=== PATIENT | male | born 1990 | race Caucasian/White ===

== ENCOUNTER 2019-01-12 12:53 | Emergency (ER) | payer OTHER ==
[~2019-01-12] VITALS: Ht 182.9 cm; Wt 73.5 kg
[~2019-01-12 12:53] MED LIST: ALBU90OI INH; AMOX500 PO; CEPH500 PO; CODGUAEL PO; DOXY100 PO; ERYT333ERA PO; HYDGUAL120 PO; SULF10OPSA OU; SULTRIDS PO
[2019-01-12] MEDS ORDERED: Bactrim Ds Tab1 EACH PO (14:01)
== END 2019-01-12 14:24 | disposition home or self-care (01) ==
LOC: ER 12:53
DX: S62.202A Unspecified fracture of first metacarpal bone, left hand, initial encounter for closed fracture (principal); F17.210 Nicotine dependence, cigarettes, uncomplicated; X58.XXXA Exposure to other specified factors, initial encounter
CPT/HCPCS: 29125; 73130; 99283-25

== ENCOUNTER 2019-02-12 02:41 | Emergency (ER) | payer OTHER ==
[~2019-02-12] VITALS: Ht 182.9 cm; Wt 81.7 kg
[~2019-02-12 02:41] MED LIST changes: +Bactrim Ds Tab1 EACH PO
[2019-02-12] MEDS ORDERED: ERYT1OIN RIGHTEYE (03:56)
[2019-02-12] MEDS ORDERED: IMPOYZ60 GM TOP (03:56)
== END 2019-02-12 04:15 | disposition home or self-care (01) ==
LOC: ER 02:41
DX: H10.9 Unspecified conjunctivitis (principal); L25.5 Unspecified contact dermatitis due to plants, except food; F17.200 Nicotine dependence, unspecified, uncomplicated

== ENCOUNTER 2019-02-17 19:05 | Emergency (ER) | payer OTHER ==
[~2019-02-17] VITALS: Ht 182.9 cm; Wt 86.2 kg
[~2019-02-17 19:05] MED LIST changes: +ERYT1OIN RIGHTEYE; +IMPOYZ60 GM TOP
[2019-02-17] MEDS ORDERED: CEPH500 PO (21:07)
[2019-02-17] MEDS ORDERED: Bactrim Ds Tab1 EACH PO (21:12)
== END 2019-02-17 21:19 | disposition home or self-care (01) ==
LOC: ER 19:05
DX: L25.5 Unspecified contact dermatitis due to plants, except food (principal); F17.200 Nicotine dependence, unspecified, uncomplicated
CPT/HCPCS: 99282

== ENCOUNTER 2020-11-25 18:30 | Emergency (ER) | payer SELFPAY ==
[~2020-11-25] VITALS: Ht 182.9 cm; Wt 77.1 kg
[~2020-11-25 18:30] MED LIST changes: +IBUP800 PO
== END 2020-11-25 20:48 | disposition home or self-care (01) ==
LOC: ER 18:30
DX: S01.82XA Laceration with foreign body of other part of head, initial encounter (principal); F17.210 Nicotine dependence, cigarettes, uncomplicated; W34.010A Accidental discharge of airgun, initial encounter
CPT/HCPCS: 10120; 70260; 99283-25

== ENCOUNTER 2021-07-12 14:34 | Emergency (ER) | payer OTHER ==
[~2021-07-12] VITALS: Ht 182.9 cm; Wt 77.1 kg
[2021-07-12] MEDS ORDERED: ALBU90OI INH (17:14)
[2021-07-12] MEDS ORDERED: ZYRTEC10 M2 PO (17:14)
[2021-07-12] MEDS ORDERED: Cleocin HCl300 MG PO (17:14)
== END 2021-07-12 17:23 | disposition home or self-care (01) ==
LOC: ER 14:34
DX: J98.01 Acute bronchospasm (principal); L73.9 Follicular disorder, unspecified; F17.210 Nicotine dependence, cigarettes, uncomplicated
CPT/HCPCS: 99283

== ENCOUNTER 2021-12-04 20:01 | Emergency (ER) | payer OTHER ==
[~2021-12-04] VITALS: Ht 185.4 cm; Wt 77.1 kg
[~2021-12-04 20:01] MED LIST changes: +Cleocin HCl300 MG PO; +ZYRTEC10 M2 PO
[2021-12-04 20:29] LABS: BASOPHILS ABSOLUTE AUTO 0.05 K/mm3 (0.00-0.23); BASOPHILS PERCENT AUTO 1 % (0-2); EOSINOPHILS ABSOLUTE AUTO 0.22 K/mm3 (0.00-0.68); EOSINOPHILS PERCENT AUTO 3 % (0-6); Hematocrit 47.1 % (37.0-53.0); Hemoglobin 15.5 g/dL (13.5-17.5); IMMATURE GRAN ABSOLUTE AUTO 0.02 K/mm3 (0.00-0.10); IMMATURE GRAN PERCENT AUTO 0 % (0-1); LYMPHOCYTES ABSOLUTE AUTO 0.94 K/mm3 (0.84-5.20); LYMPHOCYTES PERCENT AUTO 15 % (21-46); MONOCYTES ABSOLUTE AUTO 1.12 K/mm3 (0.16-1.47); MONOCYTES PERCENT AUTO 17 % (4-13); Mean Corpuscular HGB 30.7 pg (26.0-34.0); Mean Corpuscular HGB Conc 32.9 g/dL (31.5-36.5); Mean Corpuscular Volume 93 fL (80-100); Mean Platelet Volume 9.9 fL (9.1-12.4); NEUTROPHILS ABSOLUTE AUTO 4.09 K/mm3 (1.96-9.15); NEUTROPHILS PERCENT AUTO 64 % (41-73); Platelet Count 246 K/mm3 (150-400); RDW Coefficient Variation 12.8 % (11.7-14.2); RDW Standard Deviation 43.8 fL (35.1-46.3); Red Blood Cell Count 5.05 M/mm3 (4.30-5.90); White Blood Cell Count 6.44 K/mm3 (4.00-11.30)
[2021-12-04 20:51] LABS: Ethanol (Alcohol), Blood, Med <3 mg/dL
[2021-12-04 21:10] LABS: Alanine Aminotransfer (ALT/SGP 27 U/L (12-78); Albumin, Blood 3.7 g/dL (3.4-5.0); Albumin/Globulin Ratio 1.1 (0.8-1.8); Alk Phos 112 U/L (50-136); Anion Gap 6 mmol/L (6-16); Aspartate Aminotrans (AST/SGOT 21 U/L (12-37); Bilirubin, Total 0.4 mg/dL (0.1-1.0); Blood Urea Nitrogen 18 mg/dL (8-24); Bun/Creatinine Ratio 17.3 (12.0-20.0); CO2, Blood 27 mmol/L (21-32); Calcium, Blood 8.8 mg/dL (8.5-10.1); Chloride, Blood 103 mmol/L (98-108); Creatinine, Blood 1.04 mg/dL (0.60-1.20); Globulin, Blood 3.4 g/dL (2.2-4.0); Glomerular Filtration Rate >60 (60-); Glucose, Blood 164 mg/dL (70-99); Potassium, Blood 3.5 mmol/L (3.5-5.5); Sodium, Blood 136 mmol/L (136-145); Total Protein, Blood 7.1 g/dL (6.4-8.2)
[2021-12-04] MEDS ORDERED: CEPH500 PO (22:15)
[2021-12-04] MEDS ORDERED: Percocet 5-3251 EACH PO (22:15)
[2021-12-04] MEDS ORDERED: CRUTCH2 XX (22:52)
== END 2021-12-04 23:10 | disposition home or self-care (01) ==
LOC: ER 20:01
PROVIDERS: Emergency Medicine
DX: S82.252A Displaced comminuted fracture of shaft of left tibia, initial encounter for closed fracture (principal); S91.032A Puncture wound without foreign body, left ankle, initial encounter; W34.00XA Accidental discharge from unspecified firearms or gun, initial encounter
CPT/HCPCS: 73610; 73630; 73706; 80053; 85025; 86850; 86900; 86901; A9270; G0480; J0690; Q9967

== ENCOUNTER 2021-12-05 02:04 | Emergency (ER) | payer OTHER ==
[~2021-12-05] VITALS: Ht 185.4 cm; Wt 77.1 kg
[~2021-12-05 02:04] MED LIST changes: +CRUTCH2 XX; +Percocet 5-3251 EACH PO
== END 2021-12-05 04:47 | disposition home or self-care (01) ==
LOC: ER 02:04
DX: S81.832D Puncture wound without foreign body, left lower leg, subsequent encounter (principal); F15.10 Other stimulant abuse, uncomplicated; F17.210 Nicotine dependence, cigarettes, uncomplicated
CPT/HCPCS: J1170

== ENCOUNTER 2021-12-05 22:16 | Emergency (ER) | payer OTHER ==
[~2021-12-05] VITALS: Ht 185.4 cm; Wt 77.1 kg
== END 2021-12-05 22:37 | disposition home or self-care (01) ==
LOC: ER 22:16
DX: S82.202D Unspecified fracture of shaft of left tibia, subsequent encounter for closed fracture with routine healing (principal); F15.10 Other stimulant abuse, uncomplicated; F17.210 Nicotine dependence, cigarettes, uncomplicated
CPT/HCPCS: J1885

== ENCOUNTER 2022-05-08 08:31 | Emergency (ER) | payer OTHER ==
[~2022-05-08] VITALS: Ht 182.9 cm; Wt 77.1 kg
[2022-05-08] MEDS ORDERED: CEPH500 PO ×2 (10:14→10:47)
[2022-05-08] MEDS ORDERED: Bactrim Ds Tab1 EACH PO ×2 (10:14→10:47)
== END 2022-05-08 10:55 | disposition home or self-care (01) ==
LOC: ER 08:31
DX: S41.112A Laceration without foreign body of left upper arm, initial encounter (principal); F17.210 Nicotine dependence, cigarettes, uncomplicated; F15.90 Other stimulant use, unspecified, uncomplicated; Z23 Encounter for immunization; X99.9XXA Assault by unspecified sharp object, initial encounter; Y92.89 Other specified places as the place of occurrence of the external cause
CPT/HCPCS: 76882; 90471; 90714

== ENCOUNTER 2022-12-17 17:31 | Emergency (ER) | payer OTHER ==
[~2022-12-17] VITALS: Ht 185.4 cm; Wt 77.1 kg
[~2022-12-17 17:31] MED LIST changes: +Vibramycin100 MG PO
[2022-12-17 18:27] LABS: Hematocrit 45.4 % (37.0-53.0); Hemoglobin 15.6 g/dL (13.5-17.5); Mean Corpuscular HGB 31.1 pg (26.0-34.0); Mean Corpuscular HGB Conc 34.4 g/dL (31.5-36.5); Mean Corpuscular Volume 90 fL (80-100); Platelet Count 212 K/mm3 (150-400); RDW Coefficient Variation 11.9 % (11.7-14.2); RDW Standard Deviation 39.8 fL (35.1-46.3); Red Blood Cell Count 5.02 M/mm3 (4.30-5.90); White Blood Cell Count 27.03 K/mm3 (4.00-11.30)
[2022-12-17 18:29] LABS: Influenza A, PCR NEGATIVE (NEGATIVE); Influenza B, PCR NEGATIVE (NEGATIVE); Resp Syncytial Virus, PCR NEGATIVE (NEGATIVE); SARS-Cov-2 (COVID-19) PCR, MMC NEGATIVE (NEGATIVE)
[2022-12-17 18:50] LABS: Albumin, Blood 3.1 g/dL (3.4-5.0); Albumin/Globulin Ratio 0.7 (0.8-1.8); Bilirubin, Total 0.8 mg/dL (0.1-1.0); Bun/Creatinine Ratio 21.2 (12.0-20.0); Calcium, Blood 9.2 mg/dL (8.5-10.1); Creatinine, Blood 0.9 mg/dL (0.60-1.20); Globulin, Blood 4.2 g/dL (2.2-4.0); Potassium, Blood 4.3 mmol/L (3.5-5.5); Total Protein, Blood 7.3 g/dL (6.4-8.2)
[2022-12-17 19:04] LABS: BAND PERCENT MAN 17 % (0-8); BASOPHILS PERCENT MAN 0 % (0-2); EOSINOPHILS PERCENT MAN 0 % (0-6); LYMPHOCYTES ABSOLUTE MAN 0.81 K/mm3 (0.84-5.20); LYMPHOCYTES PERCENT MAN 3 % (21-46); METAMYELOCYTE ABSOLUTE MAN 0.27 K/mm3 (0.00-0.00); METAMYELOCYTE PERCENT MAN 1 % (0-0); MONOCYTES PERCENT MAN 10 % (4-13); NEUTROPHILS ABSOLUTE MAN 23.24 K/mm3 (1.96-9.15); SEG NEUTROPHILS PERCENT MAN 69 % (41-73); TOTAL CELLS COUNTED 100
[2022-12-17] MEDS ORDERED: Zithromax250 MG PO (20:13)
== END 2022-12-17 20:20 | disposition home or self-care (01) ==
LOC: ER 17:31
PROVIDERS: Student in an Organized Health Care Education/Training Program
DX: J18.9 Pneumonia, unspecified organism (principal); F17.210 Nicotine dependence, cigarettes, uncomplicated; Z20.822 Contact with and (suspected) exposure to COVID-19; Z79.899 Other long term (current) drug therapy
CPT/HCPCS: 0241U; 71046; 80053; 84484; 85025; A9270

== ENCOUNTER 2023-07-27 02:29 | Emergency (ER) | payer OTHER ==
[~2023-07-27] VITALS: Ht 182.9 cm; Wt 77.1 kg
[~2023-07-27 02:29] MED LIST changes: +Zithromax250 MG PO
[2023-07-27 02:39] VITALS: BP 127/71
== END 2023-07-27 04:30 | disposition home or self-care (01) ==
LOC: ER 02:29
DX: L02.31 Cutaneous abscess of buttock (principal); F17.210 Nicotine dependence, cigarettes, uncomplicated
CPT/HCPCS: 10060; 99282-25

== ENCOUNTER 2024-04-08 01:07 | Emergency (ER) | payer OTHER ==
[~2024-04-08] VITALS: Ht 182.9 cm; Wt 77.1 kg
[2024-04-08 02:06] LABS: Source, Urine Voided
[2024-04-08 02:29] LABS: Bilirubin, Urine Neg (Neg); Blood, Urine Neg (Neg); Glucose Qualitative, Urine Neg (Neg); Ketones, Urine Neg (Neg); Leukocyte Esterase, Urine Neg (Neg); Nitrite, Urine Neg (Neg); Protein, Urine Neg (Neg); Specific Gravity, Urine 1.025 (1.003-1.022); Urobilinogen, Urine NORM (Normal)
[2024-04-08 02:45] LABS: Appearance, Urine Clear (Clear); Color, Urine Yellow (P-Yellow)
[2024-04-08 04:00] VITALS: BP 113/71
== END 2024-04-08 04:50 | disposition home or self-care (01) ==
LOC: ER 01:07
PROVIDERS: Student in an Organized Health Care Education/Training Program
DX: R35.0 Frequency of micturition (principal); F17.210 Nicotine dependence, cigarettes, uncomplicated
CPT/HCPCS: 81003

== ENCOUNTER 2025-07-22 21:42 | Emergency (ER) | payer OTHER ==
[~2025-07-22] VITALS: Ht 185.4 cm; Wt 81.7 kg
[2025-07-22 22:08] VITALS: BP 126/80
[2025-07-22 22:14] LABS: Source, Urine Clean Catch
[2025-07-22 22:22] LABS: Bilirubin, Urine Neg (Neg); Glucose Qualitative, Urine Neg (Neg); Ketones, Urine Neg (Neg); Leukocyte Esterase, Urine Neg (Neg); Protein, Urine Neg (Neg); Specific Gravity, Urine 1.020 (1.003-1.022); Urobilinogen, Urine NORM (Normal)
[2025-07-22 22:33] LABS: Color, Urine Yellow (P-Yellow)
[2025-07-23 00:23] LABS: Chlamydia Trachomatis Urine NOT DETECTED (NOT DETECT); Neisseria Gonorrhoea Urine NOT DETECTED (NOT DETECT)
== END 2025-07-23 02:25 | disposition home or self-care (01) ==
LOC: ER 21:42
PROVIDERS: Student in an Organized Health Care Education/Training Program
DX: R30.0 Dysuria (principal); F17.210 Nicotine dependence, cigarettes, uncomplicated
CPT/HCPCS: 81003; 87491; 87591; 99283